=== PATIENT | female | born 1950 | race Caucasian/White ===

== ENCOUNTER 2019-02-23 08:34 | Day surgery (SDC) | payer MEDICARE, MEDICAID ==
[2019-02-23] MEDS ORDERED: Lactated Ringers 1,000 ML IV SCH (09:00)
[2019-02-23] MEDS ORDERED: fentaNYL 100 MCG/2 ML SDV ONE (09:13)
[2019-02-23] MEDS ORDERED: Midazolam 1 MG/ML 2 ML SDV ONE (09:13)
[2019-02-23] MEDS ORDERED: Propofol 200 MG/20 ML SDV ONE (09:13)
[2019-02-23 12:57] VITALS: BP 126/67; PULSE 77
--- NOTE | 2019-02-23 13:22 | OR ---
DATE OF PROCEDURE: 02/23/2019 SURGEON: Angel Garza MD PREOPERATIVE DIAGNOSIS: History of colon polyps. POSTOPERATIVE DIAGNOSES: Two small colon polyps, history of colon polyps. PROCEDURE: Colonoscopy to the cecum. ANESTHESIA: IV anesthesia with monitored anesthesia care. INDICATION: This 69-year-old white female is referred for a colonoscopy. She has a history of colon polyps. Her last colonoscopic exam was done about 5 years ago. I counseled her for the procedure, including risks and alternatives, and she gave her informed consent to proceed. DESCRIPTION OF PROCEDURE: The patient was placed in the left lateral decubitus position. IV anesthesia was administered by the anesthesia service. Time-out was held. A rectal exam was performed, which was unremarkable. The flexible video Olympus colonoscope was introduced through her anus, up her rectum and out her colon, all the way to the cecum. En route, we saw a small polyp at the splenic flexure, which was removed with the biopsy forceps. Once the cecum was reached, the scope was slowly withdrawn, examining the mucosa throughout. Another small polyp was seen in the transverse colon. This was removed with the biopsy forceps. No other lesions were noted. The scope was brought back in the rectum, where it was retroflexed. The distal rectum appeared unremarkable. The scope was straightened and removed. She tolerated the procedure well. Angel Garza MD /[id number]
== END 2019-02-23 13:23 | disposition home or self-care (01) ==
LOC: JP.SDS 08:34
PROVIDERS: ATTEND Surgery
DX: Z12.11 Encounter for screening for malignant neoplasm of colon (principal); D12.3 Benign neoplasm of transverse colon; E11.9 Type 2 diabetes mellitus without complications; E78.5 Hyperlipidemia, unspecified; E66.01 Morbid (severe) obesity due to excess calories; K21.9 Gastro-esophageal reflux disease without esophagitis; G47.33 Obstructive sleep apnea (adult) (pediatric); Z99.89 Dependence on other enabling machines and devices; Z86.010 Personal history of colon polyps; Z68.42 Body mass index [BMI] 45.0-49.9, adult
CPT/HCPCS: 45380; J2250; J2704; J3010; J7120; 88305

== ENCOUNTER 2021-03-26 01:43 | Emergency (ER) | payer MEDICARE, MEDICAID ==
[2021-03-26] MEDS ORDERED: Sodium Chloride 0.9% 10 ML Syringe FLUSH PRN (02:14)
[2021-03-26] MEDS ORDERED: Acetaminophen 325 MG Tab PO ONE (02:14)
[2021-03-26] MEDS ORDERED: Sodium Chloride 0.9% 1,000 ML IV SCH (02:15)
--- NOTE | 2021-03-26 02:24 | EDM.PDOC ---
ED HPI GENERAL MEDICAL PROBLEM - General Chief Complaint: Neurological Problem Stated Complaint: CONFUSION Time Seen by Provider: 03/26/21 02:01 Source of Information: Reports: Patient, Family History Limitations: Reports: No Limitations - History of Present Illness INITIAL COMMENTS - FREE TEXT/NARRATIVE: Presents to the emergency room tonight secondary to concern about increasing confusion. Patient does not provide very much information she does know that she is at [facility] located in [place] but otherwise when asked why she is here if she has any complaints or discomforts she just had to make some help sound and does not answer. states that that is been her normal demeanor this evening and this is a change in her normal status. He states that she does normally drive fix meals plain house take care of things otherwise. She fixed Thanksgiving dinner on and Thursday he said he would she was hurt his not her normal self today and this evening they did go out to dinner [employer] and she was her normal self there was later in the evening that she became more withdrawn and we sleep in nature. He states that she was able to walk although it did require some assistance there was no one-sided weakness he has not noted any speech change no speech pattern or garbling of speech has been noted although he states that she is not really saying much to him PMH/Meds--as per EMR; spouse states he does not know her medications or medical conditions other than asthma and diabetes type 2 he states that she is on Metformin and prednisone but he is not sure if she is always on prednisone versus something new Tob--former EtOH/Drugs--denies Allergy--PCN Patient has not had COVID nor has she had her COVID immunization Onset: Today, Sudden - Related Data Allergies Allergy/AdvReac Type Severity Reaction Status Date / Time bee pollen Allergy Cannot Verified 02/29/16 08:36 Remember bee venom protein (honey bee) Allergy Anaphylactic Verified 03/26/21 01:54 Shock cholestyramine Allergy Cannot Verified 02/29/16 08:36 Remember ginseng Allergy Cannot Verified 02/29/16 08:36 Remember lovastatin Allergy Cannot Verified 02/29/16 08:36 Remember niacin Allergy Cannot Verified 02/29/16 08:36 Remember Penicillins Allergy Hives Verified 02/29/16 08:36 rosuvastatin [From Crestor] Allergy Cannot Verified 02/29/16 08:36 Remember Wrtrusf-LGB-RpC Reductase Allergy Cannot Verified 02/29/16 08:36 Inhibitor Remember [Ivjozda-Nof-Nbx Reductase Inhibitor] tizanidine Allergy Cannot Verified 02/17/19 13:20 Remember Home Meds: Home Meds Furosemide 10 mg PO DAILY 09/07/14 [History] Albuterol Sulfate [Proair Hfa] 2 puff INH QID 02/27/16 [History] Albuterol [Proventil Neb Soln] 3 ml INH Q4H PRN 02/27/16 [History] EPINEPHrine [Epipen 2-Sanju] 0.3 ml IM DAILY PRN 02/27/16 [History] Fluconazole [Diflucan] 150 mg PO .7D 02/27/16 [History] Fluticasone/Salmeterol [Advair Diskus 500-50] 1 puff INH BID 02/27/16 [History] Multivitamin with Minerals [Multiple Vitamin] 1 tab PO DAILY 02/27/16 [History] SitaGLIPtin [Januvia] 100 mg PO DAILY 02/18/18 [History] Diclofenac Sodium [Voltaren] 50 mg PO BID 02/17/19 [History] Fexofenadine [Jia] 180 mg PO DAILY 02/17/19 [History] Acetaminophen/Diphenhydramine [Tylenol Pm Ex-Strength Caplet] 2 tab PO BEDTIME 03/26/21 [History] Aspirin [Aspirin EC] 325 mg PO DAILY 03/26/21 [History] Ibuprofen [Ibu] 600 mg PO TID 03/26/21 [History] Lidocaine 5% 1 dose TOP BID PRN 03/26/21 [History] Magnesium 1 tab PO DAILY 03/26/21 [History] Vitamin D3/Folic Acid [Folic D3 94.38 Mcg-1 mg Cap] 1 tab PO DAILY 03/26/21 [History] metFORMIN [Glucophage XR] 1,000 mg PO BID 03/26/21 [History] Past Medical History HEENT History: Reports: Impaired Vision Cardiovascular History: Reports: High Cholesterol Respiratory History: Reports: Asthma Gastrointestinal History: Reports: Cholelithiasis, Colon Polyp, GERD, Hemorrhoid s, Hiatal Hernia Genitourinary History: Reports: None CARDIOLOGY CLINICAL NURSE SPECIALIST History: Reports: Dysfunctional Uterine Bleeding, , Spontaneous Musculoskeletal History: Reports: Back Pain, Chronic, Fracture, Osteoarthritis Psychiatric History: Reports: Depression, Panic Attack Endocrine/Metabolic History: Reports: Diabetes, Type II, Obesity/BMI 30+, Osteopenia Hematologic History: Reports: Blood Transfusion(s) Dermatologic History: Reports: Other (See Below) Other Dermatologic History: RASH - Infectious Disease History Infectious Disease History: Reports: Chicken Pox - Past Surgical History HEENT Surgical History: Reports: Tonsillectomy GI Surgical History: Reports: Appendectomy, Cholecystectomy, Colonoscopy, EGD Female Surgical History: Reports: D&C, Hysterectomy, Tubal Ligation Musculoskeletal Surgical History: Reports: Arthroscopic Knee, Carpal Tunnel Social & Family History - Family History Family Medical History: No Pertinent Family History - Tobacco Use Tobacco Use Status *Q: Unknown Ever Used Tobacco - Caffeine Use Caffeine Use: Reports: Coffee ED ROS GENERAL - Review of Systems Review Of Systems: Comprehensive ROS is negative, except as noted in HPI. Constitutional: Reports: Weakness (generalized) Psychiatric: Reports: Confusion ED EXAM, GENERAL - Physical Exam Exam: See Below Exam Limited By: Other (patient does not answer many questions, she does know she is in [place] at [facility]) General Appearance: Alert, No Apparent Distress, Obese Eye Exam: Bilateral Eye: EOMI, PERRL Ears: Normal External Exam, Hearing Grossly Normal Nose: Normal Inspection Throat/Mouth: Normal Inspection, Normal Lips, Normal Voice, No Airway Compromise Head: Atraumatic, Normocephalic Neck: Normal Inspection, Supple, Non-Tender, Full Range of Motion Respiratory/Chest: No Respiratory Distress, Lungs Clear, Normal Breath Sounds, Chest Non-Tender Cardiovascular: Normal Peripheral Pulses, Regular Rate, Rhythm, No Murmur, Tachycardia. No: No Edema (2+ edema to bilateral LE below knee) Peripheral Pulses: 2+: Radial (L), Radial (R) GI/Abdominal: Normal Bowel Sounds, Soft, Non-Tender (Female) Exam: Deferred Rectal (Female) Exam: Deferred Back Exam: Normal Inspection Extremities: Normal Capillary Refill, Pedal Edema Neurological: Alert, Oriented, No Motor/Sensory Deficits, Slow to Respond. No: Normal Cognition Psychiatric: Normal Affect, Normal Mood Skin Exam: Dry, Intact. No: Warm (skin is hot to touch c/w elevated temperature), Normal Color (facial flushing) Course - Vital Signs Text/Narrative:: 0350--call from lab regarding critical value patient is Covid positive at this time. Patient is currently at CT scan. I did inform spouse who was at patient bedside of Covid positive results I also did discuss that he would likely be Covid positive if he had not already had Covid infection 0405--patient labs have been reviewed noted for hypomagnesium will replace with infusion lactic is 2.1 which is borderline high blood cell count of 6.8 with a 77.4% neutrophil metabolic panel is unremarkable other than anion gap of 14 her CRP is elevated at 3.58 and is already noted patient has a positive Covid nasal swab. Recommend patient receive monoclonal antibody infusion secondary to chronic medical conditions and high risk for further complications. This was discussed with her and orders were completed 0440--CT Head--final radiology reading no acute process. patient will be ready for d/c when IV mag rider completed Last Recorded V/S: Last Vital Signs Temp 102.6 F H 03/26/21 03:21 Pulse 125 H 03/26/21 03:21 Resp 21 H 03/26/21 03:21 BP 117/83 03/26/21 03:21 Pulse Ox 93 L 03/26/21 03:21 - Orders/Labs/Meds Orders: Active Orders 24 hr Category Date Time Status Peripheral IV Care [RC] . DIRECTED Care 03/26/21 02:16 Active Pulse Oximetry [RC] CONTINUOUS Care 03/26/21 02:15 Active Vital Signs [RC] PER UNIT ROUTINE Care 03/26/21 02:14 Active Clear Liquid Diet [DIET] Diet 03/26/21 Breakfast Active Chest 1V Frontal [CR] Urgent Exams 03/26/21 02:14 Taken CULTURE BLOOD [BC] Urgent Lab 03/26/21 02:30 Received CULTURE BLOOD [BC] Urgent Lab 03/26/21 02:35 Received CULTURE URINE [RM] Urgent Lab 03/26/21 02:39 Received GLUCOSE POC LAB TO COLLECT JPM [POC] Stat Lab 03/26/21 01:53 Ordered Magnesium Sulfate/Water [Magnesium Sulfate in Water 2 Med 03/26/21 04:07 Active GM/50 ML] 2 gm Premix Bag 1 bag IV ONETIME Sodium Chloride 0.9% [Normal Saline] 1,000 ml Med 03/26/21 02:15 Active IV ASDIRECTED Sodium Chloride 0.9% [Saline Flush] Med 03/26/21 02:14 Active 10 ml FLUSH ASDIRECTED PRN Blood Culture x2 Reflex Set [OM.PC] Urgent Oth 03/26/21 02:14 Ordered Isolation [COMM] Stat Oth 03/26/21 02:22 Ordered Peripheral IV Insertion Adult [OM.PC] Urgent Oth 03/26/21 02:14 Ordered Medication Orders Sodium Chloride (Normal Saline) 1,000 mls @ 125 mls/hr IV ASDIRECTED BARBARA Last Admin: 03/26/21 02:43 Dose: 125 mls/hr Documented by: TORRI Magnesium Sulfate 2 gm/ Premix 50 mls @ 25 mls/hr IV ONETIME ONE Stop: 03/26/21 06:06 Last Admin: 03/26/21 04:24 Dose: 25 mls/hr Documented by: TORRI Sodium Chloride (Sodium Chloride 0.9% 10 Ml Syringe) 10 ml FLUSH ASDIRECTED PRN PRN Reason: Keep Vein Open Last Admin: 03/26/21 02:42 Dose: 10 ml Documented by: TORRI Labs: Laboratory Tests 03/26/21 03/26/21 03/26/21 Range/Units 01:55 02:20 02:30 WBC 6.8 (4.5-11.0) K/uL RBC 4.57 (3.30-5.50) M/uL Hgb 13.1 (12.0-15.0) g/dL Hct 38.7 (36.0-48.0) % MCV 85 (80-98) fL MCH 29 (27-31) pg MCHC 34 (32-36) % Plt Count 171 (150-400) K/uL Neut % (Auto) 77.4 H (36-66) % Lymph % (Auto) 8.7 L (24-44) % [place] % (Auto) 13.5 H (2-6) % Eos % (Auto) 0.3 L (2-4) % Baso % (Auto) 0.1 (0-1) % Sodium 138 L (140-148) mmol/L Potassium 3.8 (3.6-5.2) mmol/L Chloride 100 (100-108) mmol/L Carbon Dioxide 27 (21-32) mmol/L Anion Gap 14.8 H (5.0-14.0) mmol/L BUN 23 H D (7-18) mg/dL Creatinine 0.9 D (0.6-1.0) mg/dL Est Cr Clr Drug Dosing 48.80 mL/min Estimated GFR (MDRD) > 60 (>60) Glucose 180 H (74-106) mg/dL POC Glucose 183 H (74-106) mg/dL Lactic Acid (0.4-2.0) mmol/L Calcium 8.8 (8.5-10.1) mg/dL Magnesium 1.6 L (1.8-2.4) mg/dL Total Bilirubin 0.3 (0.2-1.0) mg/dL AST 43 H D (15-37) U/L ALT 53 (12-78) U/L Alkaline Phosphatase 60 (46-116) U/L C-Reactive Protein 3.58 H (0.0-0.3) mg/dL Total Protein 6.9 (6.4-8.2) g/dL Albumin 3.6 (3.4-5.0) g/dL Globulin 3.3 (2.3-3.5) g/dL Albumin/Globulin Ratio 1.1 L (1.2-2.2) Urine Color (YELLOW) Urine Appearance (CLEAR) Urine pH (5.0-8.0) Ur Specific [place] (1.008-1.030) Urine Protein (NEGATIVE) mg/dL Urine Glucose (UA) (NEGATIVE) mg/dL Urine Ketones (NEGATIVE) mg/dL Urine Occult Blood (NEGATIVE) Urine Nitrite (NEGATIVE) Urine Bilirubin (NEGATIVE) Urine Urobilinogen (0.2-1.0) EU/dL Ur Leukocyte Esterase (NEGATIVE) Urine RBC (0-5) Urine WBC (0-5) Ur Epithelial Cells Amorphous Sediment Urine Bacteria Urine Mucus Influenza Type A RNA (NEGATIVE) Influenza Type B RNA (NEGATIVE) SARS-CoV-2 RNA (JUAN) (NEGATIVE) 03/26/21 03/26/21 03/26/21 Range/Units 02:30 02:39 02:39 WBC (4.5-11.0) K/uL RBC (3.30-5.50) M/uL Hgb (12.0-15.0) g/dL Hct (36.0-48.0) % MCV (80-98) fL MCH (27-31) pg MCHC (32-36) % Plt Count (150-400) K/uL Neut % (Auto) (36-66) % Lymph % (Auto) (24-44) % [place] % (Auto) (2-6) % Eos % (Auto) (2-4) % Baso % (Auto) (0-1) % Sodium (140-148) mmol/L Potassium (3.6-5.2) mmol/L Chloride (100-108) mmol/L Carbon Dioxide (21-32) mmol/L Anion Gap (5.0-14.0) mmol/L BUN (7-18) mg/dL Creatinine (0.6-1.0) mg/dL Est Cr Clr Drug Dosing mL/min Estimated GFR (MDRD) (>60) Glucose (74-106) mg/dL POC Glucose (74-106) mg/dL Lactic Acid 2.1 H (0.4-2.0) mmol/L Calcium (8.5-10.1) mg/dL Magnesium (1.8-2.4) mg/dL Total Bilirubin (0.2-1.0) mg/dL AST (15-37) U/L ALT (12-78) U/L Alkaline Phosphatase (46-116) U/L C-Reactive Protein (0.0-0.3) mg/dL Total Protein (6.4-8.2) g/dL Albumin (3.4-5.0) g/dL Globulin (2.3-3.5) g/dL Albumin/Globulin Ratio (1.2-2.2) Urine Color Yellow (YELLOW) Urine Appearance Clear (CLEAR) Urine pH 5.5 (5.0-8.0) Ur Specific [place] 1.025 (1.008-1.030) Urine Protein Negative (NEGATIVE) mg/dL Urine Glucose (UA) 100 H (NEGATIVE) mg/dL Urine Ketones 15 H (NEGATIVE) mg/dL Urine Occult Blood Small H (NEGATIVE) Urine Nitrite Negative (NEGATIVE) Urine Bilirubin Negative (NEGATIVE) Urine Urobilinogen 0.2 (0.2-1.0) EU/dL Ur Leukocyte Esterase Negative (NEGATIVE) Urine RBC 0-5 (0-5) Urine WBC 0-5 (0-5) Ur Epithelial Cells Few Amorphous Sediment Not seen Urine Bacteria Rare Urine Mucus Not seen Influenza Type A RNA Negative (NEGATIVE) Influenza Type B RNA Negative (NEGATIVE) SARS-CoV-2 RNA (JUAN) Positive H (NEGATIVE) Meds: Medications Generic Name Dose Route Start Last Admin Trade Name Freq PRN Reason Stop Dose Admin Sodium Chloride 1,000 mls @ 125 mls/hr 03/26/21 02:15 03/26/21 02:43 Normal Saline IV 125 mls/hr ASDIRECTED BARBARA Administration Magnesium Sulfate 2 gm/ Premix 50 mls @ 25 mls/hr 03/26/21 04:07 03/26/21 04:24 IV 03/26/21 06:06 25 mls/hr ONETIME ONE Administration Sodium Chloride 10 ml 03/26/21 02:14 03/26/21 02:42 Sodium Chloride 0.9% 10 Ml Syringe FLUSH 10 ml ASDIRECTED PRN Administration Keep Vein Open Discontinued Medications Generic Name Dose Route Start Last Admin Trade Name Freq PRN Reason Stop Dose Admin Acetaminophen 650 mg 03/26/21 02:14 03/26/21 02:42 Acetaminophen 325 Mg Tab PO 03/26/21 02:15 650 mg NOW ONE Administration - Radiology Interpretation Free Text/Narrative:: Preliminary reading of 1Vchest film is noted for bilateral infiltrates opacities consistent with Covid pneumonia final radiology reading is pending at this time Departure - Departure Time of Disposition: 06:30 Disposition: Home, Self-Care 01 Condition: Good Clinical Impression: Pneumonia due to COVID-19 virus, Hypomagnesemia, Mild dehydration, Confusion - Discharge Information *PRESCRIPTION DRUG MONITORING PROGRAM REVIEWED*: Not Applicable *COPY OF PRESCRIPTION DRUG MONITORING REPORT IN PATIENT KATY: Not Applicable Instructions: COVID-19: What Your Test Results Mean - [facility] (09/24/2019), COVID- 19 Frequently Asked Questions, Prone Position Therapy, Hypomagnesemia, 10 Things You Can Do to Manage Your COVID-19 Symptoms at Home - CDC (11/09/2020), Rehydration, Adult, How to Wear and Take Off Your Mask - CDC (07/26/2020), Symptoms of COVID-19 - [facility] (06/18/2020) Referrals: PCP,None [Primary Care Provider] - Forms: ED Department Discharge Additional Instructions: It is recommended that you obtain monoclonal antibody infusion secondary to your positive Covid diagnosis and chronic medical conditions. Orders have been placed for this and you will be contacted by outpatient patients for a time and date to come in for infusion. You do have the right to refuse this or decline of any further questions about obtaining this method of treatment for your Covid pneumonia/Covid diagnosis it is recommended that you contact your primary care provider Ensure that you are drinking plenty of fluids to stay well-hydratedwater, juice, sports drinks of choice (low calorie varieties are recommended secondary to your diabetes) other options and hydration include Jell-O popsicles and soups. When you are feeling better your appetite will improve/return to normal. I have provided you with a prescription for ondansetron (Zofran) for any nausea or vomiting you may have--please use on a regular basis if you have nausea that is keeping you from drinking fluids to stay hydrated You should use acetaminophen (Tylenol) every 4-6 hours per label for any pain discomfort fevers chills body aches headaches. Additional control of symptoms can be obtained using ibuprofen (Motrin, Advil) 400 mg every 4-6 hours [id number] If you have increasing symptoms of concern to include low oxygen saturation noted on a home proximal pulse oximetry (this can be obtained at local pharmacy of choice for home monitoring), any reading less than 90 to 92% is a concern and should be followed up with your primary care provider or further evaluation in the emergency room Sepsis Event Note (ED) - Evaluation Sepsis Screening Result: Possible Sepsis Risk - Focused Exam Vital Signs: Vital Signs Temp Temp Pulse Resp BP Pulse Ox 03/26/21 03:21 102.6 F H 125 H 21 H 117/83 93 L 03/26/21 02:48 102.2 F H 03/26/21 02:42 101.8 F H 03/26/21 02:03 101.8 F H 116 H 27 H 150/63 H 95 03/26/21 01:58 101.8 F H 116 H 27 H 150/63 H 95 - My Orders Last 24 Hours: My Active Orders 03/26/21 01:53 GLUCOSE POC LAB TO COLLECT JPM [POC] Stat 03/26/21 02:14 Vital Signs [RC] PER UNIT ROUTINE Chest 1V Frontal [CR] Urgent Sodium Chloride 0.9% [Saline Flush] 10 ml FLUSH ASDIRECTED PRN Blood Culture x2 Reflex Set [OM.PC] Urgent Peripheral IV Insertion Adult [OM.PC] Urgent 03/26/21 02:15 Pulse Oximetry [RC] CONTINUOUS Sodium Chloride 0.9% [Normal Saline] 1,000 ml IV ASDIRECTED 03/26/21 02:16 Peripheral IV Care [RC] . DIRECTED 03/26/21 02:22 Isolation [COMM] Stat 03/26/21 02:30 CULTURE BLOOD [BC] Urgent 03/26/21 02:35 CULTURE BLOOD [BC] Urgent 03/26/21 02:39 CULTURE URINE [RM] Urgent 03/26/21 04:07 Magnesium Sulfate/Water [Magnesium Sulfate in Water 2 GM/50 ML] 2 gm Premix Bag 1 bag IV ONETIME 03/26/21 Breakfast Clear Liquid Diet [DIET] - Assessment/Plan Last 24 Hours: My Active Orders 03/26/21 01:53 GLUCOSE POC LAB TO COLLECT JPM [POC] Stat 03/26/21 02:14 Vital Signs [RC] PER UNIT ROUTINE Chest 1V Frontal [CR] Urgent Sodium Chloride 0.9% [Saline Flush] 10 ml FLUSH ASDIRECTED PRN Blood Culture x2 Reflex Set [OM.PC] Urgent Peripheral IV Insertion Adult [OM.PC] Urgent 03/26/21 02:15 Pulse Oximetry [RC] CONTINUOUS Sodium Chloride 0.9% [Normal Saline] 1,000 ml IV ASDIRECTED 03/26/21 02:16 Peripheral IV Care [RC] . DIRECTED 03/26/21 02:22 Isolation [COMM] Stat 03/26/21 02:30 CULTURE BLOOD [BC] Urgent 03/26/21 02:35 CULTURE BLOOD [BC] Urgent 03/26/21 02:39 CULTURE URINE [RM] Urgent 03/26/21 04:07 Magnesium Sulfate/Water [Magnesium Sulfate in Water 2 GM/50 ML] 2 gm Premix Bag 1 bag IV ONETIME 03/26/21 Breakfast Clear Liquid Diet [DIET]
[2021-03-26 03:40] LABS: CORONAVIRUS COVID-19 NAA POSITIVE (NEGATIVE)
[2021-03-26] MEDS ORDERED: Magnesium Sulfate/Water 2 GM in Premix Bag 1 BAG IV ONE (04:07)
--- NOTE | 2021-03-26 04:33 | CRLCT ---
For Patients: As a result of the Century Cures Act, medical imaging exams and procedure reports are released immediately into your electronic medical record. You may view this report before your referring provider. If you have questions, please contact your health care provider. Indication: Fever, confusion Technique: Nonenhanced axial CT imaging through the head. Sagittal and coronal reconstructions are provided. Comparison: None Findings: There is no evidence of intracranial hemorrhage or cerebral edema. Tai-white matter differentiation is preserved. The ventricles are normal in size. The basal cisterns are patent. The calvarium is intact. There is minimal fluid in the left mastoid air cells. Remainder of the visualized paranasal sinuses and mastoid air cells are aerated. Impression: No acute intracranial process. Please note that all CT scans at this facility use dose modulation, iterative reconstruction, and/or weight-based dosing when appropriate to reduce radiation dose to as low as reasonably achievable. Dictated by Nazario Damon MD @ 03/26/2021 4:32:03 AM (Electronically Signed)
[2021-03-26] MEDS ORDERED: Ondansetron 4 MG/2 ML SDV IVPUSH ONE (04:43)
[2021-03-26] MEDS ORDERED: Ibuprofen 600 MG Tab PO ONE (04:43)
[2021-03-26] MEDS ORDERED: Ibuprofen 600 MG Tab ONE (07:51)
[2021-03-26] MEDS ORDERED: methylPREDNISolone Sodium Succinate 125 MG/2 ML SDV IM PRN (08:30)
[2021-03-26] MEDS ORDERED: diphenhydrAMINE 50 MG/ML SDV IM PRN (08:30)
[2021-03-26] MEDS ORDERED: EPINEPHrine 1 MG/ML SDV IM PRN (08:30)
[2021-03-26] MEDS ORDERED: Acetaminophen 325 MG Tab PO PRN (08:30)
[2021-03-26 08:46] VITALS: BP 121/65; PULSE 92
--- NOTE | 2021-03-26 09:08 | CR ---
CHEST: Portable 03/26/2021 at 3:35 AM CLINICAL HISTORY:Fever and confusion COMPARISON:2015 FINDINGS: There is a generalized increase in lung markings. This is exaggerated by patient's large body habitus. Heart size and pulmonary vascularity are normal. There are atherosclerotic changes in the aorta. Impression: Limited study due to portable technique and the patient's large body habitus Prominent lung markings are likely technical. Minimal pneumonitis is not excluded
== END 2021-03-26 10:20 | disposition home or self-care (01) ==
LOC: JP.ED 01:43
DX: R41.0 Disorientation, unspecified (principal); U07.1 COVID-19; J12.82 Pneumonia due to coronavirus disease 2019; E83.42 Hypomagnesemia; E86.0 Dehydration; E78.00 Pure hypercholesterolemia, unspecified; K21.9 Gastro-esophageal reflux disease without esophagitis; E66.9 Obesity, unspecified; M19.90 Unspecified osteoarthritis, unspecified site; E11.9 Type 2 diabetes mellitus without complications; Z68.42 Body mass index [BMI] 45.0-49.9, adult; Z87.891 Personal history of nicotine dependence; Z88.0 Allergy status to penicillin; Z79.84 Long term (current) use of oral hypoglycemic drugs; Z91.030 Bee allergy status; Z88.8 Allergy status to other drugs, medicaments and biological substances; Z79.82 Long term (current) use of aspirin; Z79.899 Other long term (current) drug therapy
CPT/HCPCS: 0240U; 36415; 70450; 71045; 80053; 81001; 82947; 83605; 83735; 85025; 86140; 87040; 87086; 96365; 96366; 99285; A9270; J3475; J7030; Q0243

== ENCOUNTER 2021-04-04 18:31 | Emergency (ER) | payer MEDICARE, MEDICAID ==
[2021-04-04] MEDS ORDERED: Sodium Chloride 0.9% 10 ML Syringe FLUSH PRN (18:47)
--- NOTE | 2021-04-04 19:26 | EDM.PDOC ---
<Braxton Gary G - Last Filed: 04/04/21 21:44> ED HPI GENERAL MEDICAL PROBLEM - General Chief Complaint: Respiratory Problem Stated Complaint: SOB, LOW O2, COVID POSITIVE Time Seen by Provider: 04/04/21 19:17 Source of Information: Reports: Patient, Old Records, RN History Limitations: Reports: No Limitations - History of Present Illness INITIAL COMMENTS - FREE TEXT/NARRATIVE: 71 yo unvaccinated for Covid patient was here 03/26 and dx'd with Covid. She came back the following day and got BAM therapy. She did OK until yesterday when she started getting more SOB. No longer having fevers. Is here now primarily for a cough with SOB. Onset: Gradual Onset Date: 04/03/21 (SOB onset) Duration: Day(s): (2), Getting Worse Location: Reports: Chest Quality: Reports: Other (no pain) Severity: Moderate Improves with: Reports: Rest Worsens with: Reports: Movement (exertion) Context: Reports: Other (See HPI) Associated Symptoms: Reports: Cough, Shortness of Breath. 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) - Related Data Allergies Allergy/AdvReac Type Severity Reaction Status Date / Time bee pollen Allergy Cannot Verified 04/04/21 18:43 Remember bee venom protein (honey bee) Allergy Anaphylactic Verified 04/04/21 18:43 Shock cholestyramine Allergy Cannot Verified 04/04/21 18:43 Remember ginseng Allergy Cannot Verified 04/04/21 18:43 Remember lovastatin Allergy Cannot Verified 04/04/21 18:43 Remember niacin Allergy Cannot Verified 04/04/21 18:43 Remember Penicillins Allergy Hives Verified 04/04/21 18:43 rosuvastatin [From Crestor] Allergy Cannot Verified 04/04/21 18:43 Remember Coqeeiz-OOR-CpS Reductase Allergy Cannot Verified 04/04/21 18:43 Inhibitor Remember [Utcjzsr-Jzy-Ero Reductase Inhibitor] tizanidine Allergy Cannot Verified 04/04/21 18:43 Remember Home Meds: Home Meds Furosemide 10 mg PO DAILY 09/07/14 [History] Albuterol Sulfate [Proair Hfa] 2 puff INH QID 02/27/16 [History] Albuterol [Proventil Neb Soln] 3 ml INH Q4H PRN 02/27/16 [History] EPINEPHrine [Epipen 2-Sanju] 0.3 ml IM DAILY PRN 02/27/16 [History] Fluconazole [Diflucan] 150 mg PO .7D 02/27/16 [History] Fluticasone/Salmeterol [Advair Diskus 500-50] 1 puff INH BID 02/27/16 [History] Multivitamin with Minerals [Multiple Vitamin] 1 tab PO DAILY 02/27/16 [History] SitaGLIPtin [Januvia] 100 mg PO DAILY 02/18/18 [History] Diclofenac Sodium [Voltaren] 50 mg PO BID 02/17/19 [History] Fexofenadine [Jia] 180 mg PO DAILY 02/17/19 [History] Acetaminophen/Diphenhydramine [Tylenol Pm Ex-Strength Caplet] 2 tab PO BEDTIME 03/26/21 [History] Aspirin [Aspirin EC] 325 mg PO DAILY 03/26/21 [History] Ibuprofen [Ibu] 600 mg PO TID 03/26/21 [History] Lidocaine 5% 1 dose TOP BID PRN 03/26/21 [History] Magnesium 1 tab PO DAILY 03/26/21 [History] Vitamin D3/Folic Acid [Folic D3 94.38 Mcg-1 mg Cap] 1 tab PO DAILY 03/26/21 [History] metFORMIN [Glucophage XR] 1,000 mg PO BID 03/26/21 [History] Past Medical History HEENT History: Reports: Hard of Hearing, Impaired Vision Cardiovascular History: Reports: High Cholesterol Respiratory History: Reports: Asthma, Sleep Apnea Gastrointestinal History: Reports: Cholelithiasis, Colon Polyp, GERD, Hemorrhoids, Hiatal Hernia Genitourinary History: Reports: None 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: Dysfunctional Uterine Bleeding, , Spontaneous Musculoskeletal History: Reports: Back Pain, Chronic, Fracture, Osteoarthritis Psychiatric History: Reports: Depression, Panic Attack Endocrine/Metabolic History: Reports: Diabetes, Type II, Obesity/BMI 30+, Osteopenia, Vitamin D Deficiency Hematologic History: Reports: Blood Transfusion(s) Dermatologic History: Reports: Other (See Below) Other Dermatologic History: RASH - Infectious Disease History Infectious Disease History: Reports: Chicken Pox - Past Surgical History HEENT Surgical History: Reports: Tonsillectomy Other Cardiovascular Surgeries/Procedures: 2013 Respiratory Surgical History: Reports: None GI Surgical History: Reports: Appendectomy, Cholecystectomy, Colonoscopy, EGD Female Surgical History: Reports: D&C, Hysterectomy, Tubal Ligation Musculoskeletal Surgical History: Reports: Arthroscopic Knee, Carpal Tunnel Social & Family History - Family History Family Medical History: No Pertinent Family History - Tobacco Use Tobacco Use Status *Q: Never Tobacco User - Caffeine Use Caffeine Use: Reports: None - Recreational Drug Use Recreational Drug Use: No ED ROS GENERAL - Review of Systems Review Of Systems: See Below Constitutional: Reports: No Symptoms HEENT: Reports: No Symptoms Respiratory: Reports: Shortness of Breath, Cough. Denies: Wheezing, Pleuritic Chest Pain, Sputum, Hemoptysis Cardiovascular: Reports: No Symptoms Endocrine: Reports: No Symptoms GI/Abdominal: Reports: No Symptoms : Reports: No Symptoms Musculoskeletal: Reports: No Symptoms Skin: Reports: No Symptoms Neurological: Reports: No Symptoms Psychiatric: Reports: No Symptoms ED EXAM, GENERAL - Physical Exam Exam: See Below Exam Limited By: No Limitations General Appearance: Alert, WD/WN, No Apparent Distress, Obese Eye Exam: Bilateral Eye: Normal Inspection Ears: Normal External Exam, Normal Canal, Hearing Grossly Normal, Normal TMs Ear Exam: Bilateral Ear: Auricle Normal, Canal Normal, TM normal Nose: Normal Inspection, No Blood Throat/Mouth: Normal Inspection, Normal Lips, Normal Oropharynx, Normal Voice, No Airway Compromise Head: Atraumatic, Normocephalic Neck: Normal Inspection Respiratory/Chest: Crackles, Other (tachypnea). No: No Respiratory Distress, Lungs Clear, Normal Breath Sounds Cardiovascular: Regular Rate, Rhythm, No Edema, Tachycardia GI/Abdominal: Soft, Non-Tender, No Distention. No: Distended, Tender Back Exam: Normal Inspection. No: CVA Tenderness (R), CVA Tenderness (L) Extremities: Normal Inspection, Normal Range of Motion, Non-Tender, No Pedal Edema. No: Pedal Edema Neurological: Alert, Oriented, CN II-XII Intact, Normal Cognition, No Motor/Sensory Deficits Psychiatric: Normal Affect, Normal Mood Skin Exam: Warm, Dry, Intact, No Rash, Ecchymosis (old bruise central forehead), Erythema (slight redness R lower leg) Course - Radiology Interpretation Free Text/Narrative:: CXR-bilateral infiltrates, L > R Departure - Departure Disposition: DC/Tfer to Other 70 Condition: Serious Clinical Impression: Pneumonia due to COVID-19 virus, Multiple subsegmental pulmonary emboli without acute cor pulmonale, Elevated blood sugar, Hypoxia - Discharge Information *PRESCRIPTION DRUG MONITORING PROGRAM REVIEWED*: Not Applicable *COPY OF PRESCRIPTION DRUG MONITORING REPORT IN PATIENT KATY: Not Applicable Referrals: PCP,Unknown [Primary Care Provider] - Forms: ED Department Discharge Care Plan Goals: Patient will be transferred by EMS to [facility] in [place], transfer accepted by Dr. Lee of the hospitalist service. She will need inpatient management and further treatment for Covid pneumonia resulting in hypoxia. Sepsis Event Note (ED) - Evaluation Sepsis Screening Result: No Definite Risk <Nikhil Dillard - Last Filed: 04/05/21 13:41> Course - Vital Signs Last Recorded V/S: Last Vital Signs Temp 97.8 F 04/05/21 10:34 Pulse 81 04/05/21 10:34 Resp 15 04/05/21 10:34 BP 125/61 04/05/21 10:34 Pulse Ox 85 L 04/05/21 10:34 - Orders/Labs/Meds Orders: Active Orders 24 hr Category Date Time Status Saline Lock Insert [OM.PC] Routine Oth 04/04/21 18:47 Ordered EKG 12 Lead [EK] Routine Ther 04/05/21 09:36 Stop Req Labs: Laboratory Tests 04/04/21 04/04/21 04/04/21 Range/Units 19:09 19:09 19:32 WBC 7.7 (4.5-11.0) K/uL RBC 4.70 (3.30-5.50) M/uL Hgb 13.2 (12.0-15.0) g/dL Hct 38.5 (36.0-48.0) % MCV 82 (80-98) fL MCH 28 (27-31) pg MCHC 34 (32-36) % Plt Count 369 (150-400) K/uL D-Dimer, Quantitative 4669.42 H (0.0-500.0) ng/mL Sodium 133 L (140-148) mmol/L Potassium 4.2 (3.6-5.2) mmol/L Chloride 95 L (100-108) mmol/L Carbon Dioxide 28 (21-32) mmol/L Anion Gap 14.2 H (5.0-14.0) mmol/L BUN 29 H (7-18) mg/dL Creatinine 1.0 (0.6-1.0) mg/dL Est Cr Clr Drug Dosing 41.99 mL/min Estimated GFR (MDRD) 55 L (>60) Glucose 332 H (74-106) mg/dL POC Glucose (74-106) mg/dL Calcium 9.2 (8.5-10.1) mg/dL Total Bilirubin (0.2-1.0) mg/dL Direct Bilirubin (0.0-0.2) mg/dL Indirect Bilirubin AST (15-37) U/L ALT (12-78) U/L Alkaline Phosphatase (46-116) U/L Total Protein (6.4-8.2) g/dL Albumin (3.4-5.0) g/dL Globulin (2.3-3.5) g/dL Albumin/Globulin Ratio (1.2-2.2) Urine Color (YELLOW) Urine Appearance (CLEAR) Urine pH (5.0-8.0) Ur Specific [place] (1.008-1.030) Urine Protein (NEGATIVE) mg/dL Urine Glucose (UA) (NEGATIVE) mg/dL Urine Ketones (NEGATIVE) mg/dL Urine Occult Blood (NEGATIVE) Urine Nitrite (NEGATIVE) Urine Bilirubin (NEGATIVE) Urine Urobilinogen (0.2-1.0) EU/dL Ur Leukocyte Esterase (NEGATIVE) Urine RBC (0-5) Urine WBC (0-5) Ur Epithelial Cells Amorphous Sediment Urine Bacteria Urine Mucus 04/04/21 04/04/21 04/04/21 Range/Units 20:12 21:14 21:28 WBC (4.5-11.0) K/uL RBC (3.30-5.50) M/uL Hgb (12.0-15.0) g/dL Hct (36.0-48.0) % MCV (80-98) fL MCH (27-31) pg MCHC (32-36) % Plt Count (150-400) K/uL D-Dimer, Quantitative (0.0-500.0) ng/mL Sodium (140-148) mmol/L Potassium (3.6-5.2) mmol/L Chloride (100-108) mmol/L Carbon Dioxide (21-32) mmol/L Anion Gap (5.0-14.0) mmol/L BUN (7-18) mg/dL Creatinine (0.6-1.0) mg/dL Est Cr Clr Drug Dosing mL/min Estimated GFR (MDRD) (>60) Glucose (74-106) mg/dL POC Glucose 241 H (74-106) mg/dL Calcium (8.5-10.1) mg/dL Total Bilirubin 0.8 D (0.2-1.0) mg/dL Direct Bilirubin 0.27 H (0.0-0.2) mg/dL Indirect Bilirubin 0.53 AST 26 (15-37) U/L ALT 30 (12-78) U/L Alkaline Phosphatase 65 (46-116) U/L Total Protein 7.1 (6.4-8.2) g/dL Albumin 2.7 L (3.4-5.0) g/dL Globulin 4.4 H (2.3-3.5) g/dL Albumin/Globulin Ratio 0.6 L (1.2-2.2) Urine Color Yellow (YELLOW) Urine Appearance Clear (CLEAR) Urine pH 5.5 (5.0-8.0) Ur Specific [place] 1.025 (1.008-1.030) Urine Protein Negative (NEGATIVE) mg/dL Urine Glucose (UA) 500 H (NEGATIVE) mg/dL Urine Ketones 15 H (NEGATIVE) mg/dL Urine Occult Blood Negative (NEGATIVE) Urine Nitrite Negative (NEGATIVE) Urine Bilirubin Negative (NEGATIVE) Urine Urobilinogen 0.2 (0.2-1.0) EU/dL Ur Leukocyte Esterase Negative (NEGATIVE) Urine RBC 0-5 (0-5) Urine WBC 10-20 H (0-5) Ur Epithelial Cells Few Amorphous Sediment Not seen Urine Bacteria Moderate Urine Mucus Not seen 04/05/21 Range/Units 06:28 WBC (4.5-11.0) K/uL RBC (3.30-5.50) M/uL Hgb (12.0-15.0) g/dL Hct (36.0-48.0) % MCV (80-98) fL MCH (27-31) pg MCHC (32-36) % Plt Count (150-400) K/uL D-Dimer, Quantitative (0.0-500.0) ng/mL Sodium (140-148) mmol/L Potassium (3.6-5.2) mmol/L Chloride (100-108) mmol/L Carbon Dioxide (21-32) mmol/L Anion Gap (5.0-14.0) mmol/L BUN (7-18) mg/dL Creatinine (0.6-1.0) mg/dL Est Cr Clr Drug Dosing mL/min Estimated GFR (MDRD) (>60) Glucose (74-106) mg/dL POC Glucose 281 H (74-106) mg/dL Calcium (8.5-10.1) mg/dL Total Bilirubin (0.2-1.0) mg/dL Direct Bilirubin (0.0-0.2) mg/dL Indirect Bilirubin AST (15-37) U/L ALT (12-78) U/L Alkaline Phosphatase (46-116) U/L Total Protein (6.4-8.2) g/dL Albumin (3.4-5.0) g/dL Globulin (2.3-3.5) g/dL Albumin/Globulin Ratio (1.2-2.2) Urine Color (YELLOW) Urine Appearance (CLEAR) Urine pH (5.0-8.0) Ur Specific [place] (1.008-1.030) Urine Protein (NEGATIVE) mg/dL Urine Glucose (UA) (NEGATIVE) mg/dL Urine Ketones (NEGATIVE) mg/dL Urine Occult Blood (NEGATIVE) Urine Nitrite (NEGATIVE) Urine Bilirubin (NEGATIVE) Urine Urobilinogen (0.2-1.0) EU/dL Ur Leukocyte Esterase (NEGATIVE) Urine RBC (0-5) Urine WBC (0-5) Ur Epithelial Cells Amorphous Sediment Urine Bacteria Urine Mucus Meds: Medications Discontinued Medications Generic Name Dose Route Start Last Admin Trade Name Freq PRN Reason Stop Dose Admin Acetaminophen 1,000 mg 04/04/21 22:03 04/04/21 22:30 Acetaminophen 500 Mg Tab PO 04/04/21 22:04 1,000 mg ONETIME ONE Administration Aspirin 325 mg 04/05/21 09:00 04/05/21 09:03 Aspirin 325 Mg Tab.Ec PO 325 mg DAILY BARBARA Administration Baricitinib 4 mg 04/05/21 07:06 04/05/21 09:03 Baricitinib 2 Mg Tab PO 04/05/21 07:07 4 mg ONETIME ONE Administration Dexamethasone 6 mg 04/04/21 19:36 04/04/21 19:57 Dexamethasone 4 Mg/Ml Sdv IVPUSH 04/04/21 19:37 6 mg ONETIME ONE Administration Dextrose/Water 50 ml 04/05/21 06:29 50% Dextrose In Water 50 Ml Syringe IVPUSH ASDIRECTED PRN Hypoglycemia Diclofenac Sodium 75 mg 04/05/21 08:00 04/05/21 09:59 Diclofenac Sodium 75 Mg Tab.Ec PO Not Given BIDMEALS BARBARA Diphenhydramine HCl 25 mg 04/04/21 22:04 04/04/21 22:30 Diphenhydramine 25 Mg Cap PO 04/04/21 22:05 25 mg ONETIME ONE Administration Enoxaparin Sodium 100 mg 04/04/21 21:45 04/05/21 09:02 Enoxaparin 100 Mg/1 Ml Syringe SUBCUT 100 mg Q12H BARBARA Administration Furosemide 10 mg 04/05/21 09:00 04/05/21 09:59 Furosemide 20 Mg Tab PO Not Given DAILY BARBARA Glucagon 1 mg 04/05/21 06:29 Glucagon,Human Recombinant 1 Mg Vial IM ASDIRECTED PRN Hypoglycemia Sodium Chloride 100 mls @ 3 mls/sec 04/04/21 20:15 04/04/21 21:04 Normal Saline IV 3 mls/sec ASDIRECTED BARBARA Administration Remdesivir 200 mg/ Sodium 250 mls @ 250 mls/hr 04/04/21 21:27 04/04/21 22:28 Chloride IV 04/04/21 21:28 250 mls/hr ONETIME ONE Administration Sodium Chloride Confirm 04/04/21 22:08 04/04/21 22:27 Normal Saline Administered 04/04/21 22:09 Not Given Dose 250 mls @ as directed .ROUTE .STK-MED ONE Remdesivir 100 mg/ Sodium 100 mls @ 100 mls/hr 04/05/21 22:00 Chloride IV 04/08/21 22:59 Q24H BARBARA Ceftriaxone Sodium 1 gm/ 50 mls @ 100 mls/hr 04/05/21 10:30 04/05/21 10:33 Sodium Chloride IV 04/05/21 10:59 100 mls/hr ONETIME ONE Administration Doxycycline Hyclate 100 mg/ 100 mls @ 100 mls/hr 04/05/21 10:30 04/05/21 10:32 Sodium Chloride IV 04/05/21 11:29 100 mls/hr ONETIME ONE Administration Insulin Human Regular 12 unit 04/04/21 19:36 04/04/21 19:46 Insulin Regular, Human 100 Units/Ml 3 Ml Vial SUBCUT 04/04/21 19:37 12 units ONETIME ONE Administration Insulin Human Regular 10 unit 04/04/21 21:45 04/04/21 21:58 Insulin Regular, Human 100 Units/Ml 3 Ml Vial SUBCUT 04/04/21 21:46 10 unit ONETIME ONE Administration Insulin Human Regular 14 unit 04/05/21 06:29 04/05/21 07:13 Insulin Regular, Human 100 Units/Ml 3 Ml Vial SUBCUT 04/05/21 06:30 14 units ONETIME ONE Administration Iopamidol 100 ml 04/04/21 20:15 04/04/21 21:04 Iopamidol 755 Mg/Ml 100 Ml Bottle IV 100 ml . DIRECTED BARBARA Administration Magnesium Oxide 400 mg 04/05/21 09:00 04/05/21 09:03 Magnesium Oxide 400 Mg Tab PO 400 mg DAILY BARBARA Administration Metformin HCl 1,000 mg 04/05/21 08:00 04/05/21 09:02 Metformin 500 Mg Tab PO 1,000 mg BIDMEALS BARBARA Administration Sodium Chloride 10 ml 04/04/21 18:47 04/04/21 19:17 Sodium Chloride 0.9% 10 Ml Syringe FLUSH 10 ml ASDIRECTED PRN Administration Keep Vein Open Departure - Departure Time of Disposition: 11:02 Sepsis Event Note (ED) - Focused Exam Vital Signs: Vital Signs Temp Pulse Resp BP Pulse Ox 04/05/21 10:34 97.8 F 81 15 125/61 85 L 04/05/21 09:00 97.6 F 84 17 126/71 90 L 04/05/21 07:00 97.6 F 75 16 117/63 87 L 04/05/21 05:00 98.1 F 69 15 114/55 L 95 - My Orders Last 24 Hours: My Active Orders 04/05/21 09:36 EKG 12 Lead [EK] Routine - Assessment/Plan Last 24 Hours: My Active Orders 04/05/21 09:36 EKG 12 Lead [EK] Routine
[2021-04-04] MEDS ORDERED: Dexamethasone 4 MG/ML SDV IVPUSH ONE (19:36)
[2021-04-04] MEDS ORDERED: Insulin Regular, Human 100 Units/ML 3 ML Vial SUBCUT ONE ×2 (19:36→21:45)
[2021-04-04] MEDS ORDERED: Glucagon,Human Recombinant 1 MG Vial IM PRN ×2 (19:36→21:45)
[2021-04-04] MEDS ORDERED: 50% Dextrose in Water 50 ML Syringe IVPUSH PRN ×2 (19:36→21:45)
[2021-04-04] MEDS ORDERED: Iopamidol 755 Mg/ML 100 ML Bottle IV SCH (20:15)
[2021-04-04] MEDS ORDERED: Sodium Chloride 0.9% 100 ML IV SCH (20:15)
[2021-04-04] MEDS ORDERED: REMDESIVIR 200 MG in Sodium Chloride 0.9% 250 ML IV ONE (21:27)
--- NOTE | 2021-04-04 21:46 | CRLCT ---
For Patients: As a result of the Century Cures Act, medical imaging exams and procedure reports are released immediately into your electronic medical record. You may view this report before your referring provider. If you have questions, please contact your health care provider. INDICATION: COVID-19, hypoxia. TECHNIQUE: CT pulmonary angiogram utilizing 100 mL of Isovue-370 intravenous contrast. Coronal and sagittal reformats. COMPARISON: None available. FINDINGS: Central airways patent. Moderate-severe widespread heterogeneous ground-glass opacities. No pneumothorax or pleural effusion. Right lower lobe subsegmental pulmonary arterial filling defects (series 4, images [id number]). No additional pulmonary arterial filling defects identified. No CT evidence of right heart strain. Normal cardiac size. No pericardial effusion. Scattered subcentimeter mediastinal and hilar lymph nodes. Thoracic aorta is patent and normal caliber with moderate atherosclerotic changes. The engaged upper abdomen demonstrates cholecystectomy clips. No suspicious osseous lesion. IMPRESSION: 1. Right lower lobe mild subsegmental pulmonary emboli. No CT evidence of right heart strain. 2. Widespread moderate-severe heterogeneous ground-glass opacities typical of COVID-19 infection. Case discussed with Dr. German Gary on 04/04/2021 at 9:43 p.m. Dictated by Ankur Dyer MD @ 04/04/2021 9:44:30 PM Please note that all CT scans at this facility use dose modulation, iterative reconstruction, and/or weight-based dosing when appropriate to reduce radiation dose to as low as reasonably achievable. Dictated by: Ankur Dyer MD @ 04/04/2021 21:44:42 (Electronically Signed)
[2021-04-04] MEDS: Enoxaparin 100 MG/1 ML Syringe SUBCUT SCH (21:57)
[2021-04-04] MEDS ORDERED: Acetaminophen 500 MG Tab PO ONE (22:03)
[2021-04-04] MEDS ORDERED: diphenhydrAMINE 25 MG Cap PO ONE (22:04)
[2021-04-04] MEDS ORDERED: Sodium Chloride 0.9% 250 ML ONE (22:08)
[2021-04-05] MEDS ORDERED: Insulin Regular, Human 100 Units/ML 3 ML Vial SUBCUT ONE (06:29)
[2021-04-05] MEDS ORDERED: 50% Dextrose in Water 50 ML Syringe IVPUSH PRN (06:29)
[2021-04-05] MEDS ORDERED: Glucagon,Human Recombinant 1 MG Vial IM PRN (06:29)
[2021-04-05] MEDS ORDERED: REMDESIVIR 100 MG in Sodium Chloride 0.9% 250 ML IV SCH (07:00)
[2021-04-05] MEDS ORDERED: Diclofenac Sodium 75 MG Tab.EC PO SCH (08:00)
[2021-04-05] MEDS ORDERED: metFORMIN 500 MG Tab PO SCH (08:00)
[2021-04-05] MEDS ORDERED: Aspirin 325 MG Tab.EC PO SCH (09:00)
[2021-04-05] MEDS ORDERED: Furosemide 20 MG Tab PO SCH (09:00)
[2021-04-05] MEDS ORDERED: Magnesium Oxide 400 MG Tab PO SCH (09:00)
[2021-04-05] MEDS: Enoxaparin 100 MG/1 ML Syringe SUBCUT SCH (09:02)
[2021-04-05] MEDS ORDERED: cefTRIAXone 1 GM in Sodium Chloride 0.9% 50 ML IV ONE ×2 (09:09→10:30)
[2021-04-05] MEDS ORDERED: Doxycycline 100 MG in Sodium Chloride 0.9% 100 ML IV ONE ×2 (09:09→10:30)
--- NOTE | 2021-04-05 09:17 | CR ---
CHEST: Portable 04/14/2021 at 7:10 PM CLINICAL HISTORY:SOB COMPARISON:03/26/2021 FINDINGS: There are diffuse bilateral pulmonary infiltrates, left greater than right. Heart is mildly enlarged. There are atherosclerotic changes in the aorta. Impression: Moderate diffuse bilateral pneumonic infiltrates left greater than right.
[2021-04-05 10:35] VITALS: BP 125/61; PULSE 81
[2021-04-05] MEDS ORDERED: REMDESIVIR 100 MG in Sodium Chloride 0.9% 100 ML IV SCH (22:00)
== END 2021-04-05 11:23 | disposition other institution (70) ==
LOC: JP.ED 18:31
DX: U07.1 COVID-19 (principal); J12.82 Pneumonia due to coronavirus disease 2019; I26.99 Other pulmonary embolism without acute cor pulmonale; R09.02 Hypoxemia; E11.65 Type 2 diabetes mellitus with hyperglycemia; E78.00 Pure hypercholesterolemia, unspecified; M19.90 Unspecified osteoarthritis, unspecified site; K21.9 Gastro-esophageal reflux disease without esophagitis; E66.9 Obesity, unspecified; Z68.42 Body mass index [BMI] 45.0-49.9, adult; Z88.0 Allergy status to penicillin; Z91.030 Bee allergy status; Z88.8 Allergy status to other drugs, medicaments and biological substances; Z79.82 Long term (current) use of aspirin; Z79.84 Long term (current) use of oral hypoglycemic drugs
CPT/HCPCS: 36415; 71045; 71275; 80048; 80076; 81001; 82947; 85027; 85379; 96374; 96375; 99285; A9270; J0696; J1100; J1650; J1815; J3490; J7050; Q9967